=== PATIENT | female | born 1940 | race Two or more races ===

== ENCOUNTER 2024-10-27 10:53 | Emergency (ER) | payer OTHER ==
[~2024-10-27] VITALS: Ht 162.6 cm; Wt 65.8 kg
[2024-10-27] MEDS ORDERED: FAMOtidine 10 MG/ML (4ML VIAL) IV ONE (12:15)
[2024-10-27] MEDS ORDERED: ONDANSETRON HCL 2 MG/ML VIAL IV ONE (12:15)
[2024-10-27] MEDS ORDERED: MIRTAZAPINE15 MG PO (12:20)
[2024-10-27] MEDS ORDERED: EZETIMIBE-SIMV1 EACH PO (12:20)
[2024-10-27] MEDS ORDERED: MEMANTINE HCL ER7 MG PO (12:20)
[2024-10-27] MEDS ORDERED: AMLODIPINE-VAL1 EACH PO (12:20)
[2024-10-27] MEDS ORDERED: ONDANSETRON HCL 2 MG/ML VIAL ONE (12:28)
[2024-10-27] MEDS ORDERED: FAMOTIDINE/PF 20 MG/2 ML VIAL ONE (12:28)
[2024-10-27 12:29] LABS: HEMATOCRIT 45.7 % (36.0-45.00); HEMOGLOBIN 15.1 g/dL (12.0-15.00); MEAN CELL VOLUME 86.8 fL (80.00-100.00); MEAN CORPUSCULAR HEMOGLOBIN 28.6 pg (27.00-32.0); PLATELET COUNT 156 K/uL (150-450); RED BLOOD COUNT 5.26 M/uL (4.00-6.00); RED CELL DISTRIBUTION WIDTH 14.1 % (11.5-14.5)
[2024-10-27 12:51] LABS: ALBUMIN 3.7 gm/dL (3.4-5.0); BILIRUBIN TOTAL 0.71 mg/dL (0.3-1.2); CALCIUM 9.8 mg/dL (8.5-10.1); CREATININE SERUM 0.75 mg/dL (0.55-1.02); GFR 73.62; GLOBULINA 3.7 G/DL (2.4-3.5); POTASSIUM 3.9 mEq/L (3.5-5.1); TOTAL PROTEIN 7.4 gm/dL (6.4-8.2)
[2024-10-27 12:56] LABS: INR 0.98; PARTIAL THROMBOPLASTIN TIME 23.9 SECONDS (22.0-34.0); PROTHROMBIN TIME 10.7 SECONDS (9.0-11.5)
[2024-10-27 15:09] LABS: URINE APPEARANCE Clear; URINE BILIRRUBIN Negative (NEGATIVE); URINE BLOOD Trace; URINE COLOR Yellow; URINE GLUCOSE Negative (NEGATIVE); URINE KETONE 15 (NEGATIVE); URINE LEUKOCYTE Trace; URINE NITRATE Negative; URINE PROTEIN 30 (NEGATIVE); URINE UROBILINOGEN 0.2 E.U./dl
[2024-10-27 15:35] LABS: URINE BACTERIA 51.3 uL (0.0-1933); URINE EPITHELIAL CELLS 11.5 uL (0.0-38.8); URINE RBC 10.4 uL (0.0-20.8); URINE WBC 27.9 uL (0.0-23.2)
[2024-10-27 16:00] LABS: URINE CAST 0.14 uL (0.0-1.40)
[2024-10-27] MEDS ORDERED: PEPCID AC20 MG PO (16:09)
[2024-10-27] MEDS ORDERED: BACTRIM DS TAB1 EACH PO (16:09)
== END 2024-10-27 16:31 | disposition home or self-care (01) ==
LOC: ER 10:53
PROVIDERS: General Practice
DX: N39.0 Urinary tract infection, site not specified (principal); R11.10 Vomiting, unspecified; R44.2 Other hallucinations; I10 Essential (primary) hypertension
CPT/HCPCS: 36415; 70450; 71045; 93005; 96365; 99284; J2405; J3490

== ENCOUNTER 2024-12-08 17:35 | Emergency (ER) | payer OTHER ==
[~2024-12-08] VITALS: Ht 157.5 cm; Wt 65.8 kg
[~2024-12-08 17:35] MED LIST: AMLODIPINE-VAL1 EACH PO; BACTRIM DS TAB1 EACH PO; EZETIMIBE-SIMV1 EACH PO; MEMANTINE HCL ER7 MG PO; MIRTAZAPINE15 MG PO; PEPCID AC20 MG PO
[2024-12-08] MEDS ORDERED: EXELON1 EAC1 TD (18:53)
[2024-12-08] MEDS ORDERED: ACETAMINOPHEN 500 MG GEL..CAP PO ONE ×2 (19:07→19:15)
== END 2024-12-08 20:30 | disposition home or self-care (01) ==
LOC: ER 17:35
DX: M54.50 Low back pain, unspecified (principal); M54.9 Dorsalgia, unspecified; I10 Essential (primary) hypertension

== ENCOUNTER 2025-07-12 16:13 | Emergency (ER) | payer OTHER ==
[~2025-07-12] VITALS: Ht 160 cm; Wt 61.2 kg
[~2025-07-12 16:13] MED LIST changes: +EXELON1 EAC1 TD
[2025-07-12 20:32] LABS: URINE APPEARANCE Clear; URINE BILIRRUBIN Negative (NEGATIVE); URINE BLOOD Small; URINE COLOR Yellow; URINE GLUCOSE Negative (NEGATIVE); URINE KETONE Negative (NEGATIVE); URINE LEUKOCYTE Large; URINE NITRATE Negative; URINE PROTEIN 30 (NEGATIVE); URINE UROBILINOGEN 0.2 E.U./dl
[2025-07-12 20:58] LABS: URINE BACTERIA 442.7 uL (0.0-1933); URINE EPITHELIAL CELLS 13.7 uL (0.0-38.8); URINE RBC 14.7 uL (0.0-20.8); URINE WBC 710.1 uL (0.0-23.2)
[2025-07-12] MEDS ORDERED: NIFEDIPINE 30 MG TAB.SA.OSM PO ONE (21:15)
[2025-07-12 21:27] LABS: URINE CAST 0.42 uL (0.0-1.40)
[2025-07-12 21:38] LABS: BASO % 1.0 % (0.1-1.2); EOS # 0.09 (0.04-0.54); EOS % 1.1 % (0.7-7.0); LYMPH # 1.99 (1.18-3.74); LYMPH % 25.2 % (19.3-53.1); MEAN PLATELET VOLUME 12.20 fl (9.4-12.4); MONO # 0.85 (0.24-0.82); MONO % 10.7 % (4.7-12.5); NEUT # 4.87 (1.56-6.13); NEUT % 61.6 % (34.0-71.1); RED CELL DISTRIBUTION WIDTH 13.6 % (11.6-14.4)
[2025-07-12] MEDS ORDERED: NIFEDIPINE 10 MG CAPSULE PO ONE (21:58)
[2025-07-12 22:30] LABS: ALT/SGPT 47.0 U/L (12-78); AST/SGOT 42.0 U/L (15-37); BILIRUBIN TOTAL 0.57 mg/dL (0.3-1.2); BUN CREA RATIO 28.0 (7.0-25.0); CREATININE SERUM 0.9 mg/dL (0.55-1.02); GFR 59.51; GLOBULINA 3.5 G/DL (2.4-3.5); GLUCOSE FASTING 106.0 mg/dL (65-100); OSMOLALITY SERUM 292.0 MOSM/KG (275-295)
[2025-07-12] MEDS ORDERED: LABETALOL HCL 20MG/4ML SYRINGE IV ONE (23:30)
[2025-07-12] MEDS ORDERED: CEFTRIAXONE SODIUM 2,000 MG VIAL IV ONE (23:30)
[2025-07-12] MEDS ORDERED: CEFTRIAXONE SODIUM 2,000 MG VIAL ONE (23:32)
[2025-07-13] MEDS ORDERED: ACETAMINOPHEN500 M1 PO (00:34)
[2025-07-13] MEDS ORDERED: MACROBID 100 M100 MG PO (00:34)
== END 2025-07-13 00:56 | disposition home or self-care (01) ==
LOC: ER 16:13
PROVIDERS: Preventive Medicine Public Health & General Preventive Medicine
DX: N39.0 Urinary tract infection, site not specified (principal); I10 Essential (primary) hypertension